=== PATIENT | female | born 2005 ===

== ENCOUNTER 2025-02-05 09:57 | Day surgery (SDC) | payer BC, SELFPAY ==
[2025-02-05] VITALS (17 sets, daily range): BP systolic 88–128; BP diastolic 40–77; PULSE 54–85; RESP 16–21; TEMP 36.2–37.1; O2SAT 95–98; BMI 41.4
--- NOTE | 2025-02-05 10:38 | W.ANESPRE ---
General Info Date of Service Date Performed: 02/05/25 Height: 5 ft 6 in Weight: 116.573 kg Body Mass Index (BMI): 41.4 Surgical Procedure: Operation Date: 02/05/25 10:10 Proposed Procedure Side Surgeon p Exam Under Anesthesia Meme Bolton DO s Removal & Insertion of IUD Meme Bolton DO Meds Allergies and Home Medications Allergies Allergy/AdvReac Type Severity Reaction Status Date / Time diphtheria,pertussis Allergy Intermediate Other (See Verified 02/05/25 10:11 (acellular),te (From Comment) Boostrix Tdap) tree and shrub pollen Allergy Intermediate Unknown Verified 02/05/25 10:11 Home Medication ?Medication ?Instructions ?Recorded levonorgestrel 14 mcg/24 hr (up to 1 device intrauterine ONCE 01/27/25 3 yrs) 13.5 mg intrauterine device (Rebekah) loratadine 10 mg tablet (Claritin) 10 mg PO DAILY 01/27/25 triamcinolone acetonide 0.1 % 1 applic topical BID 01/27/25 topical cream bupropion HCl 150 mg 24 hr tablet, 150 mg PO QAM 01/31/25 extended release (Wellbutrin XL) multivitamin 1 tab PO DAILY 01/31/25 famotidine 20 mg tablet (Acid 20 mg PO DAILY 02/05/25 Controller) Current Visit Medications: Current Medications Generic Name Dose Route Start Last Admin Trade Name Freq PRN Reason Stop Dose Admin Ringer's Solution 1,000 mls @ 150 mls/hr 02/05/25 06:00 IV 02/05/25 23:59 INFUSION EVELIA Acetaminophen 1,000 mg in 100 mls @ 400 mls/hr 02/05/25 06:00 Ofirmev IVPB 02/05/25 23:59 PREOP EVELIA IV Miscellaneous Supplies 1 each 02/05/25 06:00 Iv Access IV 02/05/25 23:59 DIRECTED EVELIA Sodium Chloride 0 ml 02/05/25 06:00 Normal Saline Flush 10 Ml Syr IV 02/05/25 23:59 PRN PRN Sodium Chloride 0 ml 02/05/25 06:00 Normal Saline 10 Ml Vial IJ 02/05/25 23:59 DIRECTED PRN Sterile Water 0 ml 02/05/25 06:00 Water,Injection,Sterile 10 Ml Vial IJ 02/05/25 23:59 DIRECTED PRN PFSH Active Problems Active Problems: Problem Status Onset Code Low libido Acute R68.82 Pelvic pain Acute R10.2 Foot pain, left Acute M79.672 Foot pain, right Acute M79.671 Obesity Chronic E66.9 BMI 40.0-44.9, adult Acute Z68.41 Ng splints Acute S86.899A Anxiety Chronic F41.9 Medical History Medical History Depression with anxiety Surgical History Surgical History [place] teeth removed Tobacco Smoking/Tobacco Use Status: Never Passive smoking exposure: No Second hand exposure: No Alcohol Alcohol Intake: never Substance Use Substance use: Never Substance use type: does not use Prental History History 0 Para Hx # Term Pregnancies Multiple births Hx # Pregnancies Ectopic pregnancies AB induced Hx Number of Living Children AB spontaneous Vital Signs and Lab Results Vital Signs Most Recent Vital Signs in EMR: Most Recent Vital Signs Temp Pulse Resp BP Pulse Ox 37.1 C 85 16 128/77 98 02/05/25 10:19 02/05/25 10:19 02/05/25 10:19 02/05/25 10:19 02/05/25 10:19 Point of Care Results Point of Care Results: POC- Test(urine) Negative 02/05/25 10:27 Anesthesia Assessment and Plan Anesthesia History Personal History: No History of Anesthesia Complications Family History: No Family History of Anesthesia Complications Exercise Tolerance Exercise Tolerance: Metabolic Equivalents>4 Pertinent Negatives Pertinent Negatives: No Symptoms of GERD, No Major Cardiovascular Symptoms or Complaints and No Major Pulmonary Symptoms or Complaints Cardiac & Pulmonary Exam Cardiac Exam: Normal S1/S2 Heart Sounds Pulmonary Exam: Clear Bilateral Breath Sounds Implantable Cardiac Device Does patient have a Pacemaker or an ICD?: No Airway Exam Known Difficult Airway: No Mallampati Class: 2 Mouth Opening: Normal (> 3cm) Thyromental Distance: Greater than 3 cm Neck Range of Motion: Full ROM Neck Circumference: Normal Teeth Condition: Normal Dentition ASA Classification ASA Score: ASA 3 Emergency Case?: No NPO Status NPO Status: NPO Clears >2 hours, Solids >8 hours Status Status: Negative HCG Anesthesia Plan Resuscitation Status: Full Code Anesthesia Technique: General Anesthesia Airway Planned: Natural Airway Monitors Used: Standard Monitors Preoperative Comments:: Very anxious, plan Preop Versed
[2025-02-05] MEDS: Lactated Ringers 1,000 ML 150 ML IV (10:40)
[2025-02-05] MEDS: ACETAMINOPHEN 1,000 MG/100 ML BAG 400 MG IVPB (10:43)
[2025-02-05 10:50] LABS: HCT 41.2 % (36.0-46.0); HGB 13.7 g/dL (11.2-15.7); MCH 29.1 pg (27.0-33.0); MCHC 33.3 % (32.0-36.0); MCV 88 fL (80-95); MPV 8.9 fL (8.0-11.0); Platelet Count 301 10^3/uL (130-400); RBC 4.70 10^6/uL (3.93-5.22); RDW 11.9 % (11.7-14.6); RDW-SD 38.6 fL; WBC 7.81 10^3/uL (4.4-10.8)
--- NOTE | 2025-02-05 11:41 | W.PM.OP ---
Operative Note Operative Note PRE-OP DIAGNOSIS: Contraceptive management POST-OP DIAGNOSIS: same PROCEDURE: Exam under anesthesia for removal of current IUD and placement of Mirena IUD SURGEON: Meme Bolton Refer to Anesthesia Record ESTIMATED BLOOD LOSS: 5 PATHOLOGY: none sent COMPLICATIONS: None Patient was transported to: PACU Patient's condition: stable Implants: Mirena IUD; Lot [id number]. Exp Feb 2027 Indications: 20-year-old G0 desires contraception in the setting of traumatizing history during first IUD placement. Patient personally requested to have IUD replaced under anesthesia. Findings: Sounded to 7 cm Procedure Description: Patient was taken back to the OR with IV fluids running. [place] anesthesia was established. She was positioned into the dorsolithotomy position with her legs up in yellowfin stirrups and draped in a warm blanket; a timeout was performed. Side loading speculum was used to visualize the cervix. Of note, patient was noted to be flinching during the case. Therefore, the speculum was removed, and anesthesia increased her dosing. Once anesthesia was again adequate, the side loading speculum was placed again to visualize the cervix. The cervix was cleaned off with 3 passes of Betadine, and the anterior cervix was grasped with a single-tooth tenaculum. A ring forcep was used to remove the old IUD which came out fully intact and without issue. The uterus was then sounded to a length of 7 cm. The flange of the applicator of the IUD was then set to 6.5 cm and the new Mirena was inserted according to industry standards without issue. The single toothed tenaculum was then removed, and bleeding from the tenaculum cites was controlled with silver nitrate. Patient tolerated the procedure and was taken to PACU in good condition. Date of Procedure: 02/05/25
--- NOTE | 2025-02-05 12:46 | W.ANESPOSTOP ---
Postoperative Evaluation Date, Time and Location Date Performed: 02/05/25 Time Performed: 12:55 Patient Location: Day Surgery Unit Vital Signs Most Recent Imported Vital Signs: Most Recent Vital Signs Temp Pulse Resp BP Pulse Ox 36.2 C L 54 L 16 109/65 97 02/05/25 12:39 02/05/25 12:39 02/05/25 12:39 02/05/25 12:39 02/05/25 12:39 Pain Score Most Recent Pain Score: Most Recent Pain Score Pain Level 0 02/05/25 12:39 Assessment Mental Status: Awake (Alert & Oriented to Patient Baseline) Airway and Respiratory Function: Patent airway with normal (patient baseline) respiratory exam Cardiovascular Function: Hemodynamically Stable Hydration Status: Adequately Hydrated Nausea & Vomiting: No Nausea or Vomiting Pain: Pt. Denies Any Pain Peripheral Nerve Block: Patient did not receive a nerve block
== END 2025-02-05 13:34 | disposition home or self-care (01) ==
PROVIDERS: Visit Provider Obstetrics & Gynecology
PROC: (CPT 58300; principal; 2025-02-05 10:00)
PROC: (CPT 58300; 2025-02-05 10:00)
DX: Z30.433 Encounter for removal and reinsertion of intrauterine contraceptive device (principal); E66.9 Obesity, unspecified; Z68.41 Body mass index [BMI] 40.0-44.9, adult; F41.8 Other specified anxiety disorders; Z79.899 Other long term (current) drug therapy
CPT/HCPCS: 58300; 58301; 36415; 81025; 85027; 86850; 86900; 86901; J0131; J1100; J1885; J2003; J2250; J2405; J2704